=== PATIENT | female | born 1965 | race Caucasian/White ===

== ENCOUNTER 2019-11-29 14:29 | Inpatient (IN) | payer OTHER ==
[2019-11-29] MEDS ORDERED: ACETAMINOPHEN TAB 500 MG TAB PO STA (15:19)
[2019-11-29] MEDS ORDERED: VANCOMYCIN IV PER PHARMACY 1 EACH MISC MISCELLANE PRN (15:33)
[2019-11-29] MEDS ORDERED: cefTRIAXone IN SWFI 1,000 MG/10 ML SYRINGE IVP STA (15:33)
--- NOTE | 2019-11-29 15:40 | ED ---
General Adult HPI - General Source: patient, RN notes reviewed, old records reviewed Mode of arrival: ambulatory Limitations: no limitations <Laverne Sellers - Last Filed: 11/29/19 17:25> <Dejon Thompson - Last Filed: 11/29/19 17:57> - General Chief complaint: Wound/Laceration Stated complaint: sore on leg Time Seen by Provider: 11/29/19 14:55 - History of Present Illness Initial comments: Patient is a 54-year-old female who presents emergency department today for evaluation with complaints of wounds over her right lower leg. Patient states that she was incarcerated noticed these wounds started with a small pinhole infection. 2 weeks ago. She reports that she was released from [facility] one week ago. She states it is now significantly inflamed over the past 4 days. She has not been on any antibiotics. 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 Patient states that she has some pain and irritation at the rectum and perineum. She reports that she was incarcerated for a few months and was not able to see a doctor to have this checked. (Laverne Sellers) - Related Data Allergies Allergy/AdvReac Type Severity Reaction Status Date / Time Penicillins Allergy Anaphylaxis Verified 11/29/19 14:53 Review of Systems ROS Other: All systems not noted in ROS Statement are negative. <Laverne Sellers - Last Filed: 11/29/19 17:25> ROS Other: All systems not noted in ROS Statement are negative. <Dejon Thompson - Last Filed: 11/29/19 17:57> ROS Statement: Those systems with pertinent positive or pertinent negative responses have been documented in the HPI. Past Medical History Past Medical History: No Reported History History of Any Multi-Drug Resistant Organisms: None Reported Past Surgical History: No Surgical Hx Reported Smoking Status: Current every day smoker Past Alcohol Use History: None Reported Past Drug Use History: Marijuana, Methamphetamine <Laverne Sellers - Last Filed: 11/29/19 17:25> General Exam Limitations: no limitations General appearance: alert, in no apparent distress Head exam: Present: atraumatic, normocephalic, normal inspection Eye exam: Present: normal appearance, PERRL, EOMI. Absent: scleral icterus, conjunctival injection, periorbital swelling ENT exam: Present: normal exam, mucous membranes moist Neck exam: Present: normal inspection. Absent: tenderness, meningismus, lymp hadenopathy Respiratory exam: Present: normal lung sounds bilaterally. Absent: respiratory distress, wheezes, rales, rhonchi, stridor Cardiovascular Exam: Present: regular rate, normal rhythm, normal heart sounds. Absent: systolic murmur, diastolic murmur, rubs, gallop, clicks GI/Abdominal exam: Present: soft, normal bowel sounds. Absent: distended, tenderness, guarding, rebound, rigid Rectal exam: Present: normal rectal tone, mass ( has granulation tissue around rectum into the perineum. Evidence of leaking fistula was with drainage.). Absent: normal inspection Extremities exam: Present: normal inspection, full ROM, normal capillary refill. Absent: tenderness, pedal edema, joint swelling, calf tenderness Right Knee exam: Present: normal inspection, full ROM Lower Leg exam: Present: swelling, erythema (Patient has 2 separate wounds with drainage. Each measuring proximally 6 cm x 7 cm. Significant lower leg edema to the ankle.). Absent: normal inspection, full ROM Ankle exam: Present: full ROM, swelling. Absent: normal inspection Foot/Toe exam: Present: normal inspection Neurovascular tendon exam: Present: no vascular compromise Back exam: Present: normal inspection Neurological exam: Present: alert, oriented X3, CN II-XII intact Psychiatric exam: Present: normal affect, normal mood Skin exam: Present: warm, dry, intact, normal color. Absent: rash <Laverne Sellers - Last Filed: 11/29/19 17:25> - General Exam Comments Initial Comments: 54-year-old female. (Laverne Sellers) Course Vital Signs 11/29/19 14:49 Temperature 98.8 F Pulse Rate 93 Respiratory 18 Rate Blood Pressure 160/98 O2 Sat by Pulse 100 Oximetry Medical Decision Making - Lab Data Result diagrams: 11/29/19 15:59 11/29/19 15:59 - Radiology Data Radiology results: report reviewed <Laverne Sellers - Last Filed: 11/29/19 17:25> - Lab Data Result diagrams: 11/29/19 15:59 11/29/19 15:59 <Dejon Thompson - Last Filed: 11/29/19 17:57> - Medical Decision Making 54-year-old female present today for complaints of right lower extremity wound. This started while she was incarcerated 2 weeks ago with small puncture wound. She now has 2 separate wounds with significant drainage on the lateral and medial aspect of the lower leg. She has diffuse edema lower extremity. Normal pulses. Patient also complained of rectal fistula that she wanted to have evaluated. She has evidence of granulation tissue around the rectum extending into the perineum. His evidence of fistula with significant drainage. Patient will have CT with oral contrast. This time we'll admit the Patient for the significant leg infection. Wound culture obtained. She started on Rocephin and vancomycin. Pt will have oral contrast CT abdomen and pelvis. (Laverne Sellers) Patient reevaluated and reexamined by myself, Dr. Thompson. Patient resting comfortably in bed. Patient does have 2 right lower leg wounds, approximately 4 cm each, stage II with drainage. Patient updated on results and plan. Case was discussed with Dr. ramirez, covering for hospital call, who will admit. Consults will be placed with infectious disease and surgery. (Dejon Thompson) - Lab Data Lab Results 11/29/19 11/29/19 11/29/19 Range/Units 15:59 15:59 15:59 WBC 14.0 H (3.8-10.6) k/uL RBC 3.76 L (3.80-5.40) m/uL Hgb 10.8 L (11.4-16.0) gm/dL Hct 33.8 L (34.0-46.0) % MCV 90.0 (80.0-100.0) fL MCH 28.6 (25.0-35.0) pg MCHC 31.8 (31.0-37.0) g/dL RDW 13.7 (11.5-15.5) % Plt Count 393 (150-450) k/uL Neutrophils % 82 % Lymphocytes % 10 % Monocytes % 4 % Eosinophils % 2 % Basophils % 1 % Neutrophils # 11.5 H (1.3-7.7) k/uL Lymphocytes # 1.4 (1.0-4.8) k/uL Monocytes # 0.5 (0-1.0) k/uL Eosinophils # 0.3 (0-0.7) k/uL Basophils # 0.1 (0-0.2) k/uL PT 10.0 (9.0-12.0) sec INR 1.0 (<1.2) APTT 25.3 (22.0-30.0) sec Sodium (137-145) mmol/L Potassium (3.5-5.1) mmol/L Chloride (98-107) mmol/L Carbon Dioxide (22-30) mmol/L Anion Gap mmol/L BUN (7-17) mg/dL Creatinine (0.52-1.04) mg/dL Est GFR (CKD-EPI)AfAm (>60 ml/min/1.73 sqM) Est GFR (CKD-EPI)NonAf (>60 ml/min/1.73 sqM) Glucose (74-99) mg/dL Plasma Lactic Acid Dong (0.7-2.0) mmol/L Calcium (8.4-10.2) mg/dL Total Bilirubin (0.2-1.3) mg/dL AST (14-36) U/L ALT (4-34) U/L Alkaline Phosphatase (38-126) U/L Total Protein (6.3-8.2) g/dL Albumin (3.5-5.0) g/dL Urine Color Yellow Urine Appearance Cloudy H (Clear) Urine pH 6.0 (5.0-8.0) Ur Specific [place] 1.018 (1.001-1.035) Urine Protein Negative (Negative) Urine Glucose (UA) Negative (Negative) Urine Ketones Negative (Negative) Urine Blood Moderate H (Negative) Urine Nitrite Negative (Negative) Urine Bilirubin Negative (Negative) Urine Urobilinogen <2.0 (<2.0) mg/dL Ur Leukocyte Esterase Large H (Negative) Urine RBC 16 H (0-5) /hpf Urine WBC 101 H (0-5) /hpf Ur Squamous Epith Cells 3 (0-4) /hpf Urine Bacteria Rare H (None) /hpf Urine Mucus Rare H (None) /hpf 11/29/19 11/29/19 Range/Units 15:59 15:59 WBC (3.8-10.6) k/uL RBC (3.80-5.40) m/uL Hgb (11.4-16.0) gm/dL Hct (34.0-46.0) % MCV (80.0-100.0) fL MCH (25.0-35.0) pg MCHC (31.0-37.0) g/dL RDW (11.5-15.5) % Plt Count (150-450) k/uL Neutrophils % % Lymphocytes % % Monocytes % % Eosinophils % % Basophils % % Neutrophils # (1.3-7.7) k/uL Lymphocytes # (1.0-4.8) k/uL Monocytes # (0-1.0) k/uL Eosinophils # (0-0.7) k/uL Basophils # (0-0.2) k/uL PT (9.0-12.0) sec INR (<1.2) APTT (22.0-30.0) sec Sodium 137 (137-145) mmol/L Potassium 4.0 (3.5-5.1) mmol/L Chloride 105 (98-107) mmol/L Carbon Dioxide 26 (22-30) mmol/L Anion Gap 6 mmol/L BUN 16 (7-17) mg/dL Creatinine 0.54 (0.52-1.04) mg/dL Est GFR (CKD-EPI)AfAm >90 (>60 ml/min/1.73 sqM) Est GFR (CKD-EPI)NonAf >90 (>60 ml/min/1.73 sqM) Glucose 118 H (74-99) mg/dL Plasma Lactic Acid Dong 1.0 (0.7-2.0) mmol/L Calcium 9.9 (8.4-10.2) mg/dL Total Bilirubin 0.3 (0.2-1.3) mg/dL AST 19 (14-36) U/L ALT 10 (4-34) U/L Alkaline Phosphatase 74 (38-126) U/L Total Protein 7.1 (6.3-8.2) g/dL Albumin 3.7 (3.5-5.0) g/dL Urine Color Urine Appearance (Clear) Urine pH (5.0-8.0) Ur Specific [place] (1.001-1.035) Urine Protein (Negative) Urine Glucose (UA) (Negative) Urine Ketones (Negative) Urine Blood (Negative) Urine Nitrite (Negative) Urine Bilirubin (Negative) Urine Urobilinogen (<2.0) mg/dL Ur Leukocyte Esterase (Negative) Urine RBC (0-5) /hpf Urine WBC (0-5) /hpf Ur Squamous Epith Cells (0-4) /hpf Urine Bacteria (None) /hpf Urine Mucus (None) /hpf - Radiology Data fracture dislocation and tib-fib. (Laverne Sellers) Disposition Is patient prescribed a controlled substance at d/c from ED?: No Time of Disposition: 17:31 <Laverne Sellers - Last Filed: 11/29/19 17:25> <Dejon Thompson - Last Filed: 11/29/19 17:57> Clinical Impression: Cellulitis, Wound of right leg, Rectal abnormality, Fistula Disposition: ADMITTED IP TO THIS HOSP Condition: Stable Referrals: [facility] [Primary Care Provider] - 1-2 days
[2019-11-29] MEDS ORDERED: VANCOMYCIN 1,000 MG in SODIUM CHLORIDE 0.9% 250 ML IVPB ONE (16:00)
[2019-11-29 16:16] LABS: Basophils # (A) 0.1 k/uL (0-0.2); Basophils % (A) 1 %; Eosinophils # (A) 0.3 k/uL (0-0.7); Eosinophils % (A) 2 %; HCT 33.8 % (34.0-46.0); HGB 10.8 gm/dL (11.4-16.0); Lymphocytes # (A) 1.4 k/uL (1.0-4.8); Lymphocytes % (A) 10 %; MCH 28.6 pg (25.0-35.0); MCHC 31.8 g/dL (31.0-37.0); Mean Platelet Volume 7.4; Monocytes # (A) 0.5 k/uL (0-1.0); Monocytes % (A) 4 %; Neutrophils # (A) 11.5 k/uL (1.3-7.7); Neutrophils % (A) 82 %; Platelet Count 393 k/uL (150-450); RBC 3.76 m/uL (3.80-5.40); RDW 13.7 % (11.5-15.5)
--- NOTE | 2019-11-29 16:24 | XR ---
EXAMINATION TYPE: XR tibia fibula RT DATE OF EXAM: 11/29/2019 CLINICAL HISTORY: pain TECHNIQUE: AP and lateral images of the right tibia and fibula are obtained. COMPARISON: None. FINDINGS: There is no acute fracture/dislocation evident. The joint spaces appear within normal ray its. Soft tissue swelling noted laterally. IMPRESSION: There is no acute fracture or dislocation seen. ICD 10 NO FRACTURE, INITIAL EVALUATION
[2019-11-29 16:26] LABS: ALT 10 U/L (4-34); AST 19 U/L (14-36); African American GFR (CKD) >90 (>60 ml/min/1.73 sqM); Albumin 3.7 g/dL (3.5-5.0); Alkaline Phosphatase 74 U/L (38-126); Anion Gap 6 mmol/L; Blood Urea Nitrogen 16 mg/dL (7-17); Calcium 9.9 mg/dL (8.4-10.2); Carbon Dioxide 26 mmol/L (22-30); Chloride 105 mmol/L (98-107); Glucose 118 mg/dL (74-99); Non-African American GFR(CKD) >90 (>60 ml/min/1.73 sqM); Partial Thromboplastin Time 25.3 sec (22.0-30.0); Sodium 137 mmol/L (137-145); Total Bilirubin 0.3 mg/dL (0.2-1.3); Total Protein 7.1 g/dL (6.3-8.2)
[2019-11-29] MEDS: SODIUM CHLORIDE 0.9% 500 ML 500 ML IV SCH ×2 (16:38→16:40)
[2019-11-29 17:10] LABS: Appearance,Urine Cloudy (Clear); Bacteria,Urine Rare /hpf; Bilirubin,Urine Negative (Negative); Blood,Urine Moderate (Negative); Color,Urine Yellow; Glucose,Urine (UA) Negative (Negative); Ketones,Urine Negative (Negative); Leukocyte Esterase,Urine Large (Negative); Mucus,Urine Rare /hpf; Nitrite,Urine Negative (Negative); Protein,Urine Negative (Negative); RBC,Urine 16 /hpf (0-5); Specific Gravity,Urine 1.018 (1.001-1.035); Squamous Epithelial Cell,Urine 3 /hpf (0-4); Urobilinogen,Urine <2.0 mg/dL (<2.0); WBC,Urine 101 /hpf (0-5)
[2019-11-29] MEDS ORDERED: IOPAMIDOL CONTRAST (ORAL USE) VIAL PO PRN (17:36)
[2019-11-29] MEDS ORDERED: oxyCODONE-APAP 5-325MG 1 EACH TAB PO PRN (17:37)
[2019-11-29] MEDS ORDERED: ACETAMINOPHEN TAB 325 MG TAB PO PRN (17:37)
[2019-11-29] MEDS ORDERED: NALOXONE 0.4 MG/ML 1 ML VIAL IV PRN (17:37)
[2019-11-29] MEDS ORDERED: HYDROcodone/APAP 5-325MG 1 EACH TAB PO PRN (17:37)
[2019-11-29] MEDS ORDERED: ONDANSETRON 4 MG/2 ML VIAL IVP PRN (17:37)
[2019-11-29 18:12] LABS: Glucose,Whole Blood 90 mg/dL (75-99)
[2019-11-29] MEDS: SODIUM CHLORIDE 0.9% 1,000 ML IV SCH (19:08)
[2019-11-29] MEDS: IBUPROFEN 400 MG TAB PO PRN (19:48)
--- NOTE | 2019-11-29 21:15 | CT ---
EXAMINATION TYPE: CT abdomen pelvis w con DATE OF EXAM: 11/29/2019 COMPARISON: None HISTORY: rectal mass CT DLP: 598.6 mGycm Automated exposure control for dose reduction was used. CONTRAST: Performed with IV Contrast, patient injected with 100 mL of Isovue 300. Lung bases are clear. There is no pleural effusion. Heart size is normal. Liver spleen pancreas gallbladder appear normal. Bile ducts are not dilated. Stomach is intact. There is no adrenal mass. Kidneys show satisfactory contrast opacification. There is no hydronephrosi s. Ureters are not dilated. There is normal excretion on the delayed images. Abdominal aorta is atheromatous. There is no retroperitoneal adenopathy. Bladder distends smoothly. T here is no inguinal hernia. There is some mild wall thickening of the rectum and distal sigmoid colon. The appendix is posterior and appears normal. There is no mesenteric edema. There is no ascites or fr ee air. There is no bowel obstruction. There is 4.2 cm cyst on the lateral left paracolic gutter. Lumbar vertebra have normal alignment. Disc spaces are fairly normal. There is no compression fractur e. Bony pelvis is intact. IMPRESSION: There is thin walled cystic fluid collection lateral left abdomen of uncertain significan ce. This could BE a pseudocyst. No renal stone or obstruction. Normal appendix. Mild wall thickening of the lower rectosigmoid colon. No discrete mass seen. This could relate to tessie e localized colitis.
[2019-11-29] MEDS ORDERED: KETOROLAC 15 MG/ML 1 ML VIAL IVP PRN (22:09)
[2019-11-30] MEDS: carisoprodoL 350 MG TAB PO PRN ×2 (01:11→22:05)
[2019-11-30] MEDS: SODIUM CHLORIDE 0.9% 1,000 ML IV SCH ×4 (01:12→23:44)
[2019-11-30] MEDS: IBUPROFEN 400 MG TAB PO PRN (05:32)
[2019-11-30] MEDS: VANCOMYCIN 1,000 MG in SODIUM CHLORIDE 0.9% 250 ML IVPB SCH ×2 (05:35→17:59)
[2019-11-30 05:51] LABS: Basophils # (A) 0.1 k/uL (0-0.2); Basophils % (A) 0 %; Eosinophils # (A) 0.3 k/uL (0-0.7); Eosinophils % (A) 3 %; Hypochromasia Slight; Lymphocytes # (A) 1.4 k/uL (1.0-4.8); Lymphocytes % (A) 13 %; MCH 28.5 pg (25.0-35.0); MCHC 31.4 g/dL (31.0-37.0); MCV 90.9 fL (80.0-100.0); Mean Platelet Volume 7.3; Monocytes # (A) 0.5 k/uL (0-1.0); Monocytes % (A) 4 %; Neutrophils # (A) 8.7 k/uL (1.3-7.7); Neutrophils % (A) 79 %; Platelet Count 355 k/uL (150-450); RBC 3.52 m/uL (3.80-5.40); RDW 13.5 % (11.5-15.5)
[2019-11-30 05:59] LABS: Prothrombin Time 10.6 sec (9.0-12.0)
[2019-11-30 06:46] LABS: Glucose,Whole Blood 107 mg/dL (75-99)
[2019-11-30] MEDS ORDERED: PANTOPRAZOLE 40 MG/10 ML VIAL IV SCH (09:00)
--- NOTE | 2019-11-30 09:56 | P.HPIM ---
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 Patient apparently made it out of long-term recently [facility] Grace oden developed to have small tiny pimple-like area in the lateral and medial aspect of the lower part of her right leg she scratches according to her and the topical care the area. To be very large over 2 inches race with raging infection more on the lateral to medial. Patient ended up coming to the emergency department at [facility] was diagnosed with severe nonhealing infection suspicious for Route more fasciitis. Patient was giving 1 dose of vancomycin admitted to the hospital she is talking about those fistula never been checked or exam she never been diagnosed with colitis has not had any colonoscopy. CT of the abdomen and pelvis was done did not show any tumor or growth but highly suggestive for colitis at the time. Patient will be seen gastroenterology along with general surgery and infectious disease will continue current antibiotic and topical care for now she might need to have the wound on her leg debrided by general surgery and for more culture to be done. Review of Systems CONSTITUTIONAL: Well-developed no acute respiratory distress. EYES: No icterus sclerae, no conjunctivitis. EARS, NOSE, MOUTH, THROAT, and FACE: No sore throat, lymphadenopathy, carotid bruits or deformity. RESPIRATORY: No SOB cough or wheezes. CARDIOVASCULAR: No CP, Palpitation, PND, Orthopnea, or angina. GASTROINTESTINAL: Positive diarrhea, colorectal fistula and colovaginal fistula as well with worsening irritation and worsening incontinence as well. GENITOURINARY: Negative for Hematuria or UTI, no kidney stones. INTEGUMENT/BREAST: Negative for any muscular injury with mild osteoarthritis.. Positive large ulcerated area of the right leg on the medial and lateral aspect each one of them measure over one and half inch rounded area with nonhealing d rain infection. HEMATOLOGIC/LYMPHATIC: Negative for bleed or purpura. MUSCULOSKELTAL: Negative for Myalgia or arthralgia. NEURLOGICAL: No LOC, Sz or syncope, blurred vision dizziness or abnormality.. BEHAVIORAL/PSYCH: Negative. ENDOCRINE: Negative. Social history: Patient smokes half to 1 pack a day for the last 20 years, drinks echo socially, had a tried meth 3 month early never had any injected drugs in the past. Patient uses marijuana recreational. She is single mom just the left long-term recently has not been working. Family history: Patient doesn't know anything about her dad: Mother is in her 77 doing well, patient had 1 brother who is living and well and she has 2 children with no major medical problem. Past Medical History Past Medical History: No Reported History, Hypertension History of Any Multi-Drug Resistant Organisms: None Reported Past Surgical History: No Surgical Hx Reported Smoking Status: Current every day smoker Past Alcohol Use History: None Reported Past Drug Use History: Marijuana, Methamphetamine - Past Family History Father History Unknown: Yes Medications and Allergies Home Medications Medication Instructions Recorded Confirmed Type Acetaminophen Tab [Tylenol Tab] 1,000 mg PO Q6HR PRN 11/29/19 11/29/19 History Ibuprofen [Motrin Ib] 600 mg PO Q6H PRN 11/29/19 11/29/19 History Multivitamins, Thera [Multivitamin 1 tab PO DAILY 11/29/19 11/29/19 History (formulary)] Vitamin E 400 unit PO DAILY 11/29/19 11/29/19 History Allergies Allergy/AdvReac Type Severity Reaction Status Date / Time Penicillins Allergy Anaphylaxis Verified 11/29/19 18:04 Physical Exam Vitals: Vital Signs Temp Pulse Pulse Resp BP BP Pulse Ox 11/30/19 07:00 99.2 F 96 18 120/72 96 11/30/19 03:46 98.0 F 66 18 118/68 98 11/29/19 21:52 98.0 F 72 19 120/74 99 11/29/19 21:20 97.8 F 87 19 142/87 99 11/29/19 17:53 97.7 F 79 19 141/75 100 11/29/19 14:49 98.8 F 93 18 160/98 100 Intake and Output 11/29/19 11/30/19 11/30/19 22:59 06:59 14:59 Other: # Voids 1 1 Weight 55.338 kg General Appearance: Alert, cooperative, no distress, appears stated age. Neck HEENT: Supple, no lymphadenopathy, no thyroid enlargement, no carotid bruits. Lungs: Decreased breath some bilaterally with fine rhonchi no crackles positive mild expiratory wheezes. Chest Wall: Decrease expansion with deep inspiration no tenderness and no deformity was found on exam, no costochondral pain or discomfort. Heart: Regular rate and rhythm, S1, S2 normal, no murmur, rub or gallop. Back: Symmetric, no curvature, ROM normal, no CVA tenderness. Abdomen: Soft, non-tender, bowel sounds active all four quadrants, no masses, no organomegaly. Slight discomfort in the right lower quadrant area and mid lower abdominal region area as well. Rectal exam there is a large colorectal fistula on the upper part of the rectum open above the sphincter with a large corrected opening site for it has been draining stool and blood. Vaginal: There is a fistula on the right medial aspect of the labia major with large draining area again like an interrupted site with more drainage of blood in stool. Extremities: Extremities normal, atraumatic, no cyanosis or edema. 2 large area of the right leg one of the medial aspect one of the lateral aspect the medial aspect has an area of necrotic tissue in the middle both of them are around it with trace edge on the surface with more necrotic black tissue in the middle with irritation around it and mostly swelling around it as well with swelling entire leg. Pulses: 2+ and symmetric. Skin: Skin color, texture, tugor normal, no rashes or lesions. Neurologic: Alert oriented x3 cranial nerves II through XII intact, no motor deficit, no abnormal balance or gait. Results CBC & Chem 7: 11/30/19 05:19 11/29/19 15:59 Labs: Abnormal Lab Results - Last 24 Hours (Table) 11/29/19 11/29/19 11/29/19 Range/Units 15:59 15:59 15:59 WBC 14.0 H (3.8-10.6) k/uL RBC 3.76 L (3.80-5.40) m/uL Hgb 10.8 L (11.4-16.0) gm/dL Hct 33.8 L (34.0-46.0) % Neutrophils # 11.5 H (1.3-7.7) k/uL Glucose 118 H (74-99) mg/dL POC Glucose (mg/dL) (75-99) mg/dL Urine Appearance Cloudy H (Clear) Urine Blood Moderate H (Negative) Ur Leukocyte Esterase Large H (Negative) Urine RBC 16 H (0-5) /hpf Urine WBC 101 H (0-5) /hpf Urine Bacteria Rare H (None) /hpf Urine Mucus Rare H (None) /hpf 11/30/19 11/30/19 Range/Units 05:19 06:44 WBC 11.0 H (3.8-10.6) k/uL RBC 3.52 L (3.80-5.40) m/uL Hgb 10.0 L (11.4-16.0) gm/dL Hct 32.0 L (34.0-46.0) % Neutrophils # 8.7 H (1.3-7.7) k/uL Glucose (74-99) mg/dL POC Glucose (mg/dL) 107 H (75-99) mg/dL Urine Appearance (Clear) Urine Blood (Negative) Ur Leukocyte Esterase (Negative) Urine RBC (0-5) /hpf Urine WBC (0-5) /hpf Urine Bacteria (None) /hpf Urine Mucus (None) /hpf Microbiology - Last 24 Hours (Table) 11/29/19 15:59 Urine Culture - Preliminary Urine,Voided 11/29/19 15:59 Gram Stain - Preliminary Leg - Right Wound Culture - Preliminary Thrombosis Risk Factor Assmnt - DVT/VTE Prophylaxis DVT/VTE Prophylaxis: Pharmacologic Prophylaxis ordered, Mechanical Prophylaxis ordered - Choose All That Apply Any of the Below Risk Factors Present?: No Other Risk Factors: No Other congenital or acquired thrombophilia - If yes, enter type in comment: No Thrombosis Risk Factor Assessment Level: Very Low Risk Assessment and Plan Assessment: 1 severe nonhealing ulcer and cellulitis of the leg most likely an infection started over an area of erythema nodosum from her colitis and patient had scratched the area to treat secondary infection and become more fasciitis from infection not clear on time, patient will have culture, will have blood culture as well continue vancomycin with try to add non-aerobic coverage as well to infectious disease we will add probably cefepime and Flagyl to infectious disease seen patient, the medial aspect site might require debridement today. 2 2 large fistula one is colorectal and 1 is colovaginal, patient will be seen gastroenterology and gynecology and it may be more ongoing in the rectum consistent with either cancer or this is could be close to the terminal ileum as a patient never been diagnosed with Crohn disease but had it very bad with almost subtotal occlusion causing the fistula to be the weight is which again patient will require at least colonoscopy and [employer] exam to check into both she might need to be transferred to one of the colorectal surgery placed down either in [facility] for further surgery when she is ready. 3 very possible Crohn disease: Patient be seen gastroenterology for now. 4 hypertension has been well controlled on Norvasc 5 mg a day. 5 mild COPD: Rescue inhaler or ROM mild dose of DuoNeb can be use as needed. 6 chronic smoking: Smoking cessation with nicotine patch should be done for now. DVT prophylaxis: Patient will be on heparin subcutaneous. GI prophylaxis: Patient will be on Pepcid 20 mg daily. CODE STATUS: Full code. Admit patient to inpatient service more than 2 night stay.
[2019-11-30] MEDS: MEROPENEM 2 GM in SODIUM CHLORIDE 0.9% 100 ML IVPB SCH ×2 (10:07→16:19)
[2019-11-30 10:14] LABS: ALT 11 U/L (8-44); AST 10 U/L (13-35); African American GFR (CKD) 128.1 (60.0-200.0); Alkaline Phosphatase 65 U/L (41-126); Bilirubin, Conjugated <0.20 mg/dL (0.20-0.40); Calcium 8.8 mg/dL (8.7-10.3); Carbon Dioxide 25.2 mmol/L (21.6-31.8); Chloride 108 mmol/L (96-109); Glucose 87 mg/dL (70-110); Magnesium 1.5 mg/dL (1.5-2.4); Non-African American GFR(CKD) 110.5 (60.0-200.0); Potassium 3.9 mmol/L (3.5-5.5); Sodium 139 mmol/L (135-145); Total Bilirubin 0.2 mg/dL (0.2-1.2); Total Protein 5.4 g/dL (6.2-8.2)
--- NOTE | 2019-11-30 10:28 | P.GSCN ---
History of Present Illness Consult date: 11/30/19 History of present illness: CHIEF COMPLAINT: Right leg ulcer and cellulitis and possible rectal fistula HISTORY OF PRESENT ILLNESS: This is a 54-year-old female with history of nicotine dependence, hypertension and was apparently incarcerated in longterm for the last several months. Patient has a right leg wound on her calf. She thinks it may have started like a pimple. And has progressively gotten larger and has evidence of infection. Patient did report that she had scratched at it and unsure if it may have began as a bug bite. Also, in the rectal area initially there were concerns of a fistula. However, it's more of a perianal inflammation and a collection of tissue. She does have stool incontinence. Patient denies any abdominal pain. Denies any nausea or vomiting. Denies any fever, chills, sweats. PAST MEDICAL HISTORY: See list. PAST SURGICAL HISTORY: See list. MEDICATIONS: See list. ALLERGIES: See list. SOCIAL HISTORY: No illicit drug use. REVIEW OF SYSTEMS: CONSTITUTIONAL: Denies fever or chills. HEENT: Denies blurred vision, vision changes, or eye pain. Denies hemoptysis CARDIOVASCULAR: Denies chest pain or pressure. RESPIRATORY: No shortness of breath. GASTROINTESTINAL: See HPI for pertinent findings HEMATOLOGIC: Denies bleeding disorders. GENITOURINARY: Denies any blood in urine or increased urinary frequency. SKIN: Denies pruitis. Denies rash. PHYSICAL EXAM: VITAL SIGNS: Reviewed GENERAL: Well-developed in no acute distress. HEENT: No sclera icterus. Extraocular movements grossly intact. Moist buccal mucosa. Head is atraumatic, normocephalic. No nasal drainage. ABDOMEN: Soft. Nondistended. Nontender. Rectal area there is perianal inflammation and a collection of tissue outside of the anus. There have there is evidence of stool incontinence. NEUROLOGIC: Alert and oriented. Cranial nerves II through XII grossly intact. EXTREMITIES: Right lower leg calf area, medial aspect, in the middle of an old tattoo. There is a ulcer that is about 2" x 2". There is dark tissue noted around the edges. There is evidence of erythema. There is some drainage. LABORATORY DATA: WBC 14 down to 11 IMAGING: Tibial/ fibula x-ray of the right leg no evidence of fracture dislocation soft tissue swelling noted. Computed tomography scan abdomen and pelvis there is a thin-walled cystic fluid collection lateral left abdomen of uncertain significance this could be a pseudocyst. No renal stone or obstruction. Normal appendix. Mild wall thickening of the lower sigmoid colon. No discrete mass seen. This could relate to some localized colitis. ASSESSMENT: 1. Right lower leg cellulitis and ulcer 2. Perianal inflammation with area of tissue collection 3. Stool incontinence 4. Nicotine dependence PLAN: -Recommend colonoscopy -Continue antibiotics per infectious disease -No plans for surgical intervention Thank you for this consultation. Physician Stoner Hand note has been reviewed by physician. Signing provider agrees with the documented findings, assessment, and plan of care. Past Medical History Past Medical History: No Reported History, Hypertension History of Any Multi-Drug Resistant Organisms: None Reported Past Surgical History: No Surgical Hx Reported Smoking Status: Current every day smoker Past Alcohol Use History: None Reported Past Drug Use History: Marijuana, Methamphetamine - Past Family History Father History Unknown: Yes Medications and Allergies Home Medications Medication Instructions Recorded Confirmed Type Acetaminophen Tab [Tylenol Tab] 1,000 mg PO Q6HR PRN 11/29/19 11/29/19 History Ibuprofen [Motrin Ib] 600 mg PO Q6H PRN 11/29/19 11/29/19 History Multivitamins, Thera [Multivitamin 1 tab PO DAILY 11/29/19 11/29/19 History (formulary)] Vitamin E 400 unit PO DAILY 11/29/19 11/29/19 History Allergies Allergy/AdvReac Type Severity Reaction Status Date / Time Penicillins Allergy Anaphylaxis Verified 11/29/19 18:04 Surgical - Exam Vital Signs Temp Pulse Resp BP Pulse Ox 98.8 F 93 18 160/98 100 11/29/19 14:49 11/29/19 14:49 11/29/19 14:49 11/29/19 14:49 11/29/19 14:49 Results - Labs 11/30/19 05:19 11/30/19 05:19 Abnormal Lab Results - Last 24 Hours (Table) 11/29/19 11/29/19 11/29/19 Range/Units 15:59 15:59 15:59 WBC 14.0 H (3.8-10.6) k/uL RBC 3.76 L (3.80-5.40) m/uL Hgb 10.8 L (11.4-16.0) gm/dL Hct 33.8 L (34.0-46.0) % Neutrophils # 11.5 H (1.3-7.7) k/uL BUN (9.0-27.0) mg/dL Creatinine (0.6-1.5) mg/dL Glucose 118 H (74-99) mg/dL POC Glucose (mg/dL) (75-99) mg/dL Conjugated Bilirubin (0.20-0.40) mg/dL AST (13-35) U/L Total Protein (6.2-8.2) g/dL Albumin (3.80-4.90) g/dL Urine Appearance Cloudy H (Clear) Urine Blood Moderate H (Negative) Ur Leukocyte Esterase Large H (Negative) Urine RBC 16 H (0-5) /hpf Urine WBC 101 H (0-5) /hpf Urine Bacteria Rare H (None) /hpf Urine Mucus Rare H (None) /hpf 11/30/19 11/30/19 11/30/19 Range/Units 05:19 05:19 06:44 WBC 11.0 H (3.8-10.6) k/uL RBC 3.52 L (3.80-5.40) m/uL Hgb 10.0 L (11.4-16.0) gm/dL Hct 32.0 L (34.0-46.0) % Neutrophils # 8.7 H (1.3-7.7) k/uL BUN 6.0 L (9.0-27.0) mg/dL Creatinine 0.5 L (0.6-1.5) mg/dL Glucose (74-99) mg/dL POC Glucose (mg/dL) 107 H (75-99) mg/dL Conjugated Bilirubin <0.20 L (0.20-0.40) mg/dL AST 10 L (13-35) U/L Total Protein 5.4 L (6.2-8.2) g/dL Albumin 3.30 L (3.80-4.90) g/dL Urine Appearance (Clear) Urine Blood (Negative) Ur Leukocyte Esterase (Negative) Urine RBC (0-5) /hpf Urine WBC (0-5) /hpf Urine Bacteria (None) /hpf Urine Mucus (None) /hpf Microbiology - Last 24 Hours (Table) 11/29/19 15:59 Urine Culture - Preliminary Urine,Voided 11/29/19 15:59 Gram Stain - Preliminary Leg - Right Wound Culture - Preliminary Diabetes panel 11/29/19 11/30/19 Range/Units 15:59 05:19 Sodium 137 139 (137-145) mmol/L Potassium 4.0 3.9 (3.5-5.1) mmol/L Chloride 105 108 (98-107) mmol/L Carbon Dioxide 26 25.2 (22-30) mmol/L BUN 16 6.0 L (7-17) mg/dL Creatinine 0.54 0.5 L (0.52-1.04) mg/dL Glucose 118 H 87 (74-99) mg/dL Calcium 9.9 8.8 (8.4-10.2) mg/dL AST 19 10 L (14-36) U/L ALT 10 11 (4-34) U/L Alkaline Phosphatase 74 65 (38-126) U/L Total Protein 7.1 5.4 L (6.3-8.2) g/dL Albumin 3.7 3.30 L (3.5-5.0) g/dL Calcium panel 11/29/19 11/30/19 Range/Units 15:59 05:19 Calcium 9.9 8.8 (8.4-10.2) mg/dL Albumin 3.7 3.30 L (3.5-5.0) g/dL Pituitary panel 11/29/19 11/30/19 Range/Units 15:59 05:19 Sodium 137 139 (137-145) mmol/L Potassium 4.0 3.9 (3.5-5.1) mmol/L Chloride 105 108 (98-107) mmol/L Carbon Dioxide 26 25.2 (22-30) mmol/L BUN 16 6.0 L (7-17) mg/dL Creatinine 0.54 0.5 L (0.52-1.04) mg/dL Glucose 118 H 87 (74-99) mg/dL Calcium 9.9 8.8 (8.4-10.2) mg/dL Adrenal panel 11/29/19 11/30/19 Range/Units 15:59 05:19 Sodium 137 139 (137-145) mmol/L Potassium 4.0 3.9 (3.5-5.1) mmol/L Chloride 105 108 (98-107) mmol/L Carbon Dioxide 26 25.2 (22-30) mmol/L BUN 16 6.0 L (7-17) mg/dL Creatinine 0.54 0.5 L (0.52-1.04) mg/dL Glucose 118 H 87 (74-99) mg/dL Calcium 9.9 8.8 (8.4-10.2) mg/dL Total Bilirubin 0.3 0.2 (0.2-1.3) mg/dL AST 19 10 L (14-36) U/L ALT 10 11 (4-34) U/L Alkaline Phosphatase 74 65 (38-126) U/L Total Protein 7.1 5.4 L (6.3-8.2) g/dL Albumin 3.7 3.30 L (3.5-5.0) g/dL
[2019-11-30 12:57] VITALS: BMI 20.2
[2019-11-30] MEDS ORDERED: IOPAMIDOL CONTRAST (ORAL USE) VIAL PO PRN (13:21)
[2019-11-30] MEDS: IBUPROFEN 600 MG TAB PO PRN ×2 (16:25→22:04)
--- NOTE | 2019-11-30 16:51 | CONS ---
CONSULTATION DATE OF CONSULTATION: 11/30/2019 This patient is a 54-year-old female 2, para 0-2-0-2, with irregular menses, likely in the early menopause period. The patient presented to the emergency room yesterday and was admitted with a large weeping right leg wound. She was admitted under Dr. Pierre's care for IV antibiotics. Rectovaginal fistula was suspected on preliminary examination, and gynecologic consultation was requested. Patient states she has noted stool coming from the vagina for approximately 3 months. She has been incarcerated at the [facility] for approximately 8 months and was recently released. She has not been sexually active recently. Menses are irregular. Mild hot flashes and night sweats consistent with early menopause are reported. The patient states she had a Pap smear one year ago that was normal; however, she cannot recall the provider. She has never had a mammogram. PAST MEDICAL HISTORY: Past medical history is significant for chronic hypertension, ADD and Crohn's disease. PAST SURGICAL HISTORY: Past surgical history, she states, is negative. SOCIAL HISTORY: Patient was recently incarcerated at the [facility] for the past 8 months for drug-related charges. She was released on 11/23/2019. She admits to smoking tobacco for 35 years, currently one-half pack per day, at times in excess of one pack daily. She admits to drug use, marijuana and methamphetamines. She is single, unemployed and lives in [place]. FAMILY HISTORY: Family history, she states, is negative for cancers of the cervix, ovaries, colon, uterus or breast. CURRENT MEDICATIONS: Norvasc 10 mg daily, vitamin D daily, Soma for lower back pain, and Ritalin 20 mg t.i.d. PHYSICAL EXAMINATION: She is 5 feet 5 inches, 127 pounds, blood pressure 153/90, pulse 73, temperature 98.4. The general physical examination reveals poor dentition, multiple tattoos across the body. Her chest is clear to auscultation anteriorly and posteriorly. Cardiac exam reveals regular rate and rhythm. Abdomen is soft, scaphoid. Active bowel sounds. The right lower extremity is wrapped with Kerlix dressing for a chronic right leg wound. The extremities reveal diminished pulses, no edema. Breasts are bilaterally symmetric to inspection with no skin dimpling, nipple discharge, axillary adenopathy or discernible lesions or masses. On pelvic examination, there is a large, woody, necrotic change of the entire right labia majora. This extends into the posterior perineal body as well as the upper right buttock. Examination under anesthesia reveals a small mobile uterus, negative adnexa bilaterally. Rectal exam reveals almost complete replacement of the rectovaginal septum with necrotic tissue that is weeping and quite tender. LABS: Hemoglobin 12.2, WBCs 12.4 with left shift. Platelets 277,000. 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 After discussing this with Dr. Pierre, he is suspicious that this could be an extension of advanced colitis and rectovaginal fistula of a non-cancerous nature. We have decided to proceed with further imaging of the pelvis. I have suggested to the patient that I would recommend examination under anesthesia and directed biopsies, which she is refusing. She states she is very anxious to be discharged from the hospital, to go home to attend her school-aged child, as she has been out of the home for 8 months during incarceration. All questions answered. Further recommendations to follow, pending further imaging of the pelvis. Time with patient one hour. MMODL / IJN: [id number] /
[2019-11-30 20:43] LABS: Glucose,Whole Blood 122 mg/dL (75-99)
--- NOTE | 2019-11-30 22:21 | CONS ---
CONSULTATION DATE OF DICTATION: 11/30/2019 REASON FOR CONSULTATION: Possible colovaginal fistula. HISTORY OF PRESENT ILLNESS: The patient is a 54-year-old pleasant white female with a history of hypertension and COPD who has been incarcerated for the last 6 months' duration. The patient states that she developed a fistula along the right buttock area about 2 months ago. Initially she thought it was small in size and subsequently it opened up and started draining; sometimes blood in the stool and occasionally she would see stool contents. For the last couple of months this has been slowly increasing in size and started draining much more frequently, associated with some abdominal pain. She came to the emergency room yesterday and had a CT of the abdomen and pelvis done that did not show any significant pathology at the present time. She was seen by Dr. Andrew from [facility], and Surgery has also been consulted. The patient denies any abdominal pain. She reports no diarrhea or constipation. She denies any rectal bleeding. She denies any prior history of inflammatory bowel disease. In fact, she states that she never had any abdominal surgeries in the past. She reports no vaginal bleeding. PAST MEDICAL HISTORY: Her past medical history is significant for hypertension, anxiety, COPD. PAST SURGICAL HISTORY: Unremarkable. MEDICATIONS AT HOME: Tylenol p.r.n., Motrin p.r.n., multivitamin and vitamin E. ALLERGIES: NONE. SOCIAL HISTORY: Chronic smoker. No alcohol use. Smokes marijuana every day. FAMILY HISTORY: Mother is 77 and healthy. Brother has hypertension. REVIEW OF SYSTEMS: CARDIOPULMONARY: No chest pain or shortness of breath. GENITOURINARY: No dysuria or hematuria. MUSCULOSKELETAL: Unremarkable. SKIN: Fistula, as mentioned above. NEUROLOGY: Unremarkable. PSYCHIATRIC: Unremarkable. ENT/VISION: Unremarkable. CONSTITUTIONAL: No recent weight loss. No fever, chills, night sweats. [facility]: Unremarkable. PHYSICAL EXAMINATION: She appears comfortable. No apparent distress. Vital signs are stable. Blood pressure is 125/77, pulse rate 77, temperature 98.3. HEENT examination unremarkable. Conjunctivae pink. Sclerae anicteric. Oral cavity no lesions. NECK: No JVD or lymph node enlargement. CHEST: Clear to auscultation. HEART: Regular rate and rhythm. ABDOMEN: Soft. Bowel sounds are positive. No organomegaly. EXTREMITIES: No pedal edema. Right lower extremity was wrapped in dressing secondary to chronic wound infection. SKIN: No rashes. NEUROLOGIC: Alert and oriented x3. No focal deficits. Examination of the perineal area revealed a 2-3 cm skin lesion with raised margins and serosanguineous fluid draining, suspicious for a fistula. LABS: Labs done today show hemoglobin 12.2, WBC 12.4, platelets 277. Basic metabolic panel is within normal limits. IMPRESSION: 1. 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 She was evaluated by Dr. Andrew this afternoon and a pelvic examination apparently revealed significant stool with a necrotic suspicious for neoplasm. Based on her symptoms, she does not have any evidence of inflammatory bowel disease. 2. Chronic wound infection of the right lower extremity. 3. Chronic obstructive pulmonary disease. 4. History of anxiety. RECOMMENDATIONS: 1. The patient is scheduled for MRI of the pelvis that has been ordered by Dr. Andrew. 2. As per the nursing staff, plans are being made for transfer to a tertiary care institute, with which I totally agree. 3. I will not plan any endoscopic workup at the present time. 4. Will follow with you closely. Thank you for this consultation. MMODL / IJN: [id number] /
--- NOTE | 2019-11-30 22:54 | P.CONS ---
History of Present Illness - Reason for Consult Consult date: 11/30/19 Right leg abscess and cellulitis, fistula Requesting physician: Obdulio Pierre - Chief Complaint Right leg pain and wound x 2 weeks - History of Present Illness Patient is a 54-year-old female presented to [facility] ER yesterday for additional wound to her right lower extremity with the patient has about 2 weeks now patient mentioned he started has pimple and has gradual increase in size to be coming more swollen and red and painful patient described pain to the likely more of a throbbing in nature with intensity of almost 7-8 out of 10 and no radiation and did have some purulent drainage patient has been evaluated by the ER physician local culture has been obtained patient was also combining of rectal fistula that seemed to have been leaking apparently the patient has been complaining of stool coming from her vagina for approximately 3 months she's also complaining of irregular menses and some deep pelvic pain patient was evaluated by [facility] and she was noticed to have a necrotic changes of the entire right labia majora which was extending to be anybody has in his right upper buttock, she did have a CT of abdominal pelvis which did show t hinwall cystic collection of left lower abdominal of uncertain significance mild wall thickening of the lower rectosigmoid colon no discrete mass patient has been started on vancomycin pharmacy to dose and meropenem 2 g every 8 infectious disease was consulted for further management of antibiotic therapy Review of Systems Positive point has been mentioned in the HPI rest of the systems are negative Past Medical History Past Medical History: No Reported History, Hypertension History of Any Multi-Drug Resistant Organisms: None Reported Past Surgical History: No Surgical Hx Reported Smoking Status: Current every day smoker Past Alcohol Use History: None Reported Past Drug Use History: Marijuana, Methamphetamine - Past Family History Father History Unknown: Yes Medications and Allergies Home Medications Medication Instructions Recorded Confirmed Type Acetaminophen Tab [Tylenol Tab] 1,000 mg PO Q6HR PRN 11/29/19 11/29/19 History Ibuprofen [Motrin Ib] 600 mg PO Q6H PRN 11/29/19 11/29/19 History Multivitamins, Thera [Multivitamin 1 tab PO DAILY 11/29/19 11/29/19 History (formulary)] Vitamin E 400 unit PO DAILY 11/29/19 11/29/19 History Allergies Allergy/AdvReac Type Severity Reaction Status Date / Time Penicillins Allergy Anaphylaxis Verified 11/29/19 18:04 Physical Exam Vitals: Vital Signs Temp Pulse Pulse Resp BP BP Pulse Ox 11/30/19 07:00 99.2 F 96 18 120/72 96 11/30/19 03:46 98.0 F 66 18 118/68 98 11/29/19 21:52 98.0 F 72 19 120/74 99 11/29/19 21:20 97.8 F 87 19 142/87 99 11/29/19 17:53 97.7 F 79 19 141/75 100 11/29/19 14:49 98.8 F 93 18 160/98 100 Intake and Output 11/29/19 11/30/19 11/30/19 22:59 06:59 14:59 Other: # Voids 1 1 Weight 55.338 kg GENERAL DESCRIPTION: Middle-aged female lying in bed, no distress. No tachypnea or accessory muscle of respiration use. HEENT: Shows Pallor , no scleral icterus. Oral mucous membrane is dry. No pharyngeal erythema or thrush NECK: Trachea central, no thyromegaly. LUNGS: Unlabored breathing. Clear to auscultation anteriorly. No wheeze or crackle. HEART: S1, S2, regular rate and rhythm. No loud murmur ABDOMEN: Soft, no tenderness , guarding or rigidity, no organomegaly EXTREMITIES: right leg did have 2 wounds with some purulent drainage surrounding redness no foul-smelling drainage SKIN: No rash, no masses palpable. NEUROLOGICAL: The patient is awake, alert, oriented x3, mood and affect normal. Results CBC & Chem 7: 11/30/19 05:19 11/30/19 05:19 Labs: Abnormal Lab Results - Last 24 Hours (Table) 11/29/19 11/29/19 11/29/19 Range/Units 15:59 15:59 15:59 WBC 14.0 H (3.8-10.6) k/uL RBC 3.76 L (3.80-5.40) m/uL Hgb 10.8 L (11.4-16.0) gm/dL Hct 33.8 L (34.0-46.0) % Neutrophils # 11.5 H (1.3-7.7) k/uL BUN (9.0-27.0) mg/dL Creatinine (0.6-1.5) mg/dL Glucose 118 H (74-99) mg/dL POC Glucose (mg/dL) (75-99) mg/dL Conjugated Bilirubin (0.20-0.40) mg/dL AST (13-35) U/L Total Protein (6.2-8.2) g/dL Albumin (3.80-4.90) g/dL Urine Appearance Cloudy H (Clear) Urine Blood Moderate H (Negative) Ur Leukocyte Esterase Large H (Negative) Urine RBC 16 H (0-5) /hpf Urine WBC 101 H (0-5) /hpf Urine Bacteria Rare H (None) /hpf Urine Mucus Rare H (None) /hpf 11/30/19 11/30/19 11/30/19 Range/Units 05:19 05:19 06:44 WBC 11.0 H (3.8-10.6) k/uL RBC 3.52 L (3.80-5.40) m/uL Hgb 10.0 L (11.4-16.0) gm/dL Hct 32.0 L (34.0-46.0) % Neutrophils # 8.7 H (1.3-7.7) k/uL BUN 6.0 L (9.0-27.0) mg/dL Creatinine 0.5 L (0.6-1.5) mg/dL Glucose (74-99) mg/dL POC Glucose (mg/dL) 107 H (75-99) mg/dL Conjugated Bilirubin <0.20 L (0.20-0.40) mg/dL AST 10 L (13-35) U/L Total Protein 5.4 L (6.2-8.2) g/dL Albumin 3.30 L (3.80-4.90) g/dL Urine Appearance (Clear) Urine Blood (Negative) Ur Leukocyte Esterase (Negative) Urine RBC (0-5) /hpf Urine WBC (0-5) /hpf Urine Bacteria (None) /hpf Urine Mucus (None) /hpf Microbiology - Last 24 Hours (Table) 11/29/19 15:59 Urine Culture - Preliminary Urine,Voided 11/29/19 15:59 Gram Stain - Preliminary Leg - Right Wound Culture - Preliminary Assessment and Plan Assessment: 1- patient with right lower extremity wounds 2 that apparently started as pimples and has gradual increase in size with some purulent drainage likely with complaint of superficial abscess and cellulitis and likely from gram-positive skin franklyn suggesting strep and community associated MRSA 2-possible rectovaginal fistula versus squamous cell carcinoma with extension deep to the pelvis 3-penicillin ALLERGY that would limit the number of antibiotic safety use (1) Cellulitis of right leg Current Visit: Yes Status: Acute Code(s): L03.115 - CELLULITIS OF RIGHT LOWER LIMB SNOMED Code(s): 659166366 (2) Wound of right leg Current Visit: Yes Status: Acute Code(s): S81.801A - UNSPECIFIED OPEN WOUND, RIGHT LOWER LEG, INITIAL ENCOUNTER SNOMED Code(s): 115074701 Plan: 1-Vancomycin pharmacy to dose target trough of 15 while watching kidney function and Vanco trough closely 2- adjust the dose of meropenem 1 g every 8 hours await biopsy of the pelvic mass versus transfer to tertiary care Will follow on a clinical condition and cultures to further adjust medication if needed Thank you for this consultation will follow this patient along with you Time with Patient: Greater than 30
[2019-12-01] MEDS ORDERED: MEROPENEM 1 GM in SODIUM CHLORIDE 0.9% 100 ML IVPB SCH ×2
[2019-12-01 03:09] VITALS: BP 133/77; PULSE 78; RESP 19; TEMP 97.8
[2019-12-01] MEDS ORDERED: VANCOMYCIN TROUGH DUE 1 EACH MISC MISCELLANE ONE (05:00)
== END 2019-12-01 04:20 | disposition short-term general hospital (02) | DRG 394 ==
LOC: EC 14:29 → 4SSUR 17:57
PROVIDERS: ADMIT Internal Medicine Geriatric Medicine; ATTEND Internal Medicine Geriatric Medicine
DX: N82.3 Fistula of vagina to large intestine (principal); I96 Gangrene, not elsewhere classified; L03.115 Cellulitis of right lower limb; L97.919 Non-pressure chronic ulcer of unspecified part of right lower leg with unspecified severity; I10 Essential (primary) hypertension; K60.4 Rectal fistula; J44.9 Chronic obstructive pulmonary disease, unspecified; N95.1 Menopausal and female climacteric states; N92.6 Irregular menstruation, unspecified; F41.9 Anxiety disorder, unspecified; R15.9 Full incontinence of feces; R61 Generalized hyperhidrosis; D49.59 Neoplasm of unspecified behavior of other genitourinary organ; F17.210 Nicotine dependence, cigarettes, uncomplicated; Z88.0 Allergy status to penicillin; Z82.49 Family history of ischemic heart disease and other diseases of the circulatory system
CPT/HCPCS: 36415; 74177; 80048; 80053; 80076; 81001; 83605; 83735; 85025; 85610; 85652; 85730; 86140; 87040; 87070; 87086; 87205; 93005; 96365; 96366; 96375; 99285

== ENCOUNTER → 2019-12-28 | Outpatient (CLI) | payer OTHER ==
--- NOTE | 2019-12-29 13:35 | US ---
LOWER EXTREMITY VENOUS INSUFFICIENCY CLINICAL HISTORY: L97.222 NON PRESSURE CHR ULCER OC LT CALF. Right leg ulcer SIDE PERFORMED: BILATERAL 1) Color flow is present and patency is documented in the following vessels. No DVT or SVT is noted . EIV Common Femoral Vein Deep Femoral Vein Femoral Vein Popliteal Vein Proximal Calf Veins Greater Saph Vein Upper Small Saph Vein There is normal flow, compressibility, vascular waveforms. No reflux seen bilaterally. IMPRESSION: No deep venous thrombosis or venous reflux of the bilateral lower extremities.
--- NOTE | 2019-12-29 14:20 | P.ARTDOP ---
Arterial Doppler LOWER EXTREMITY ARTERIAL DOPPLER: DATE OF SERVICE: 12/28/2019 Reason for study: Ulcer right lower leg. Doppler waveforms: Multiphasic throughout. Toe waveforms are satisfactory. Pulse volume recording: []. Pressure gradients: None. Ankle-brachial indices: Right not done due to open ulcer. Left has an index of 1.07. Toe brachial indices: [] on the right, [] on the left Impression: Normal study. Although we couldn't do ankle pressures on the right it looks identical to the left in regards to waveforms. Circulatory status adequate for healing..
== END | disposition home or self-care (01) ==
LOC: RADUSWWP 13:55
PROVIDERS: ATTEND Thoracic Surgery (Cardiothoracic Vascular Surgery)
DX: L97.222 Non-pressure chronic ulcer of left calf with fat layer exposed (principal); Z88.0 Allergy status to penicillin
CPT/HCPCS: 93922; 93970